=== PATIENT | female | born 1935 ===

== ENCOUNTER 2021-02-11 18:30 | Inpatient (IN) | payer MEDICARE ==
[~2021-02-11] VITALS: Ht 160 cm; Wt 57.3 kg
[2021-02-11 19:01] LABS: HEMATOCRIT 38.4 % (37.0-47.0); HEMOGLOBIN 12.8 g/dl (12.5-16.0); MEAN CELL VOLUME 95 fl (80.0-100.0); MEAN CORPUSCULAR HEMOGLOBIN 32 pg (27.0-31.0); MEAN CORPUSCULAR HGB CONC 33 g/dl (33.0-37.0); PLATELET COUNT 264 K/mm3 (130-400); RED BLOOD COUNT 4.06 M/mm3 (4.10-5.30); REDCELL DISTRIBUTION WIDTH-CV 14.5 % (11.5-14.5)
[2021-02-11 19:09] LABS: INR 1.1 (0.8-3.0); PROTHROMBIN TIME 12.5 SECONDS (9.7-12.8)
[2021-02-11 19:11] LABS: PARTIAL THROMBOPLASTIN TIME 28.1 SECONDS (26.0-37.0)
[2021-02-11 19:21] LABS: LYMPHOCYTE 15 % (20.0-51.0); NEUTROPHILS 78 % (42.0-75.2)
[2021-02-11 19:24] LABS: PLATELET ESTIMATE NORMAL (NORMAL)
[2021-02-11 19:25] LABS: HYPOCHROMIA 1+
[2021-02-11 19:29] LABS: ALBUMIN 3.5 gm/dL (3.4-4.8); BILIRUBIN,TOTAL 0.8 mg/dL (0.2-1.2); CALCIUM 10.3 mg/dL (8.4-10.2); CREATININE, serum 1.04 mg/dL (0.57-1.11); POTASSIUM 4.1 mmol/L (3.5-4.5); TOTAL PROTEIN 7.7 gm/dL (6.2-8.1)
[2021-02-11 19:35] LABS: TROPONIN-I 0.02 ng/mL (0.00-0.033)
[2021-02-11] MEDS ORDERED: TYLENOL 325MG325 MG PO ×2 (22:26→22:42)
[2021-02-11] MEDS ORDERED: NORVASC 10MG10 MG PO (22:27)
[2021-02-11] MEDS ORDERED: GENTLE LAXATIVE10 MG RC (22:28)
[2021-02-11] MEDS ORDERED: DEPAKOTE 125MG125 M1 PO (22:29)
[2021-02-11] MEDS ORDERED: ARICEPT 5MG PO (22:30)
[2021-02-11] MEDS ORDERED: LASIX 20MG TABL20 MG PO (22:32)
[2021-02-11] MEDS ORDERED: DRIZALMA SPRINK30 MG PO (22:32)
[2021-02-11] MEDS ORDERED: IMODIUM A-D2 MG PO (22:33)
[2021-02-11] MEDS ORDERED: MELADOX NATURAL3 MG PO (22:34)
[2021-02-11] MEDS ORDERED: NAMENDA5 MG PO (22:34)
[2021-02-11] MEDS ORDERED: GOOD NEIGH1200 MG/15 PO (22:35)
[2021-02-11] MEDS ORDERED: MIRTAZAPINE7.5 MG PO (22:36)
[2021-02-11] MEDS ORDERED: MULTI-VITAMIN W1 TA1 PO (22:37)
[2021-02-11] MEDS ORDERED: ALMACONE 360 M360 ML PO (22:38)
[2021-02-11] MEDS ORDERED: PROBIOTIC BLEN1 EACH PO (22:40)
[2021-02-11] MEDS ORDERED: ALDACTONE 25MG25 M1 PO (22:41)
[2021-02-11] MEDS ORDERED: ALTACE 5MG5 MG PO (22:41)
[2021-02-11 23:26] VITALS: BP 156/62; PULSE 85; TEMP 98.2
[2021-02-12] MEDS ORDERED: TYLENOL SU650 MG/SUP RC (00:20)
[2021-02-12 03:42] VITALS: BP 136/61; PULSE 82; TEMP 99.8
--- NOTE | 2021-02-12 06:00 | NUR ---
HepXa around 0330 was greater than 1. Put on hold, and rechecked at 0530. Awaiting results at this time. Patient complained of pain to chest. Call placed to [facility], and received order for PRN Morphine. Given per orders. Patient's oxygen needs have decreaesd to 5 L/min via oxymask. Voices no further questions, needs, or concerns at this time. Resting in bed with call light within reach.
[2021-02-12 06:06] LABS: BASO % 0.3 % (0.0-2.0); EOS % 0.1 % (0-4.0); GRAN # 7.8 (1.4-6.5); HEMOGLOBIN 11.6 g/dl (12.5-16.0); LYMPH # 1.5 (1.2-3.4); MEAN CELL VOLUME 97 fl (80.0-100.0); MEAN CORPUSCULAR HEMOGLOBIN 31 pg (27.0-31.0); MEAN CORPUSCULAR HGB CONC 33 g/dl (33.0-37.0); MEAN PLATELET VOLUME 11.8 fl (7.4-10.4); MONO # 1.3 (0.1-0.6); MONO % 12.2 % (1.7-9.3); PLATELET COUNT 226 K/mm3 (130-400); RED BLOOD COUNT 3.69 M/mm3 (4.10-5.30); REDCELL DISTRIBUTION WIDTH-CV 14.6 % (11.5-14.5)
[2021-02-12 06:11] LABS: HEMATOCRIT 35.6 % (37.0-47.0)
[2021-02-12 06:37] LABS: CALCIUM 9.8 mg/dL (8.4-10.2); CREATININE, serum 0.92 mg/dL (0.57-1.11); POTASSIUM 3.9 mmol/L (3.5-4.5)
--- NOTE | 2021-02-12 06:39 | NUR ---
HepXa results back. Restarted heparin drip at 950 ml/hr per protocol.
[2021-02-12 08:15] VITALS: BP 136/58; PULSE 75; TEMP 98.8
--- NOTE | 2021-02-12 09:30 | NUR ---
Patient alert and oriented, answers questions appropriately. See assessment. Lungs decreased in bases, clear in upper lobes. No cough noted. Respers even and unlabored. Oxygen via oxymask at 5l. No c/o SOA. No other c/o at this time.
--- NOTE | 2021-02-12 09:57 | NUR ---
The patient has dementia. SEAMUS contacted the patient's son, Saqib (ph#[phone]), to discuss discharge plan. Saqib lives in [place]. The patient resides at [facility], [facility]. The patient's PCP is Dr. Horacio Bazzi. Saqib reports that the patient does have a DPOA-HC and that he is the patient's DPOA-HC. Saqib reports that the plan is for the patient to return back to [facility] upon discharge. SEAMUS contacted pebbles Stuart plus chemical unit operator at [facility]. Sade gave SEAMUS the RN leader phone number for the [facility]: ph#[phone], fx#[phone]. SEAMUS attempted to contact ISRRAEL Galvan at the [facility]. SEAMUS left her a voicemail and requested a copy of the patient's DPOA-HC. SEAMUS faxed her updates. *Discharge plan: [facility], [facility]*
--- NOTE | 2021-02-12 10:23 | NUR ---
Mandy, an RN at [facility], returned SEAMUS's phone call. Mandy states that the patient utilizes a walker there. SEAMUS inquired about the DPOA-HC. Mandy reports that they will fax it the surgical unit. Mandy states that we will need to contact Ladonna at [facility] to coordinate a transport time when the patient is ready to discharge.
--- NOTE | 2021-02-12 10:39 | NUR ---
SW received the patient's DPOA-HC, via fax. SW placed the copy in the patient's chart. The patient's DPOA-HC designates Saqib Lara.
[2021-02-12 11:20] VITALS: BP 140/52; PULSE 77; TEMP 98.6
--- NOTE | 2021-02-12 14:56 | NUR ---
Initial visit; Patient thanked Floorworker Lasting for looking in on her and offering prayer and God's blessings.
[2021-02-12 16:00] VITALS: BP 106/90; PULSE 72; TEMP 98.4
[2021-02-12 19:45] VITALS: BP 113/90; PULSE 50; TEMP 97.8
--- NOTE | 2021-02-12 21:34 | NUR ---
Patient confused: disoriented to time, place, and situation. At beginning of shift, very irritable, and yelling. Called son for patient, which helped. Redirected to time and place, but seems to upset patient when trying to reorient. Denies pain and discomfort. On oxygen at 5 l/min via NC. LS CTA in upper lobes, diminished in lower. Continues on PO Eliquis, as well as ABXs per orders. Voices no questions, needs, or concerns at this time. Resting in bed with call light within reach. High fall risk precautions in place. Took medications crushed in pudding.
[2021-02-12 23:19] VITALS: BP 127/45; PULSE 81; TEMP 98
[2021-02-13 03:32] VITALS: BP 113/42; PULSE 69; TEMP 98.4
--- NOTE | 2021-02-13 05:11 | NUR ---
Patient has been resting in bed with call light within reach. Has denied having pain and discomfort. Intermittent confusion continues. IV fluids continue. High fall risk precautions remain in place.
[2021-02-13 07:33] VITALS: BP 112/58; PULSE 79; TEMP 97.8
--- NOTE | 2021-02-13 11:48 | NUR ---
The hospitalist notified SEAMUS that the patient may be able to discharge tomorrow, 02/13. SEAMUS notified Delmi at [facility]. SEAMUS to fax updates to [facility]. SEAMUS contacted and updated the patient's son, Saqib. Saqib is in agreement to the plan.
[2021-02-13 12:28] VITALS: BP 115/48; PULSE 78; TEMP 98
--- NOTE | 2021-02-13 12:31 | NUR ---
Patient alert, confused. Answers most questions correctly, although delayed responses. Heart tones strong and even, pulses palpable. No c/o at this time.
--- NOTE | 2021-02-13 15:03 | NUR ---
Ladonna, at [facility], reports that their clinical team reviewed the updates and they would like the patient to go to [facility] for a skilled stay, due to her change in clinical status and oxygen needs. SW contacted and updated the patient's son, Saqib. Saqib is agreeable with the patient going to [facility] for a skilled stay. *Discharge plan: [facility]*
[2021-02-13 16:15] VITALS: BP 114/54; PULSE 67; TEMP 98.7
[2021-02-13 18:47] VITALS: BP 135/39; PULSE 74; TEMP 97.9
[2021-02-13 23:21] VITALS: BP 115/50; PULSE 66; TEMP 98.2
--- NOTE | 2021-02-14 03:17 | NUR ---
YELLING IS HEARD FROM PT'S ROOM. PT IS IN BED ET STATES THAT SHE NEEDS TO GO TO THE BATHROOM. PT IS ASSISTED WITH ONE ASSIST, WALKER, ET GAIT BELT TO [facility] THEN BACK TO BED. PT VOIDS ET IS INCONTINENT OF URINE. PT IS CONFUSED, ORIENTED ONLY TO PERSON. ATTEMPTS MADE TO RE-ORIENT PT BUT SHE CANNOT COMPREHEND. OXYGEN IS ON @ 3L VIA NC. PT DENIES PAIN OR OTHER NEEDS. BED ALARM ON, CALL LIGHT WITHIN REACH.
[2021-02-14 04:00] VITALS: BP 134/48; PULSE 81; TEMP 98.4
--- NOTE | 2021-02-14 04:59 | NUR ---
UNABLE TO WEAN PT OFF OF OXYEGEN @ THIS TIME. OXYGEN SATS REMAIN @ 87-88% ON RA WHEN PT REMOVES NASAL CANNULA. OXYGEN SATS ARE 91-96% ON 3L VIA NC. EXPLAINED TO PT THAT OXYEGN SHOULD REMAIN IN PLACE. PT IS AGREEABLE BUT OFTEN FORGETS ET TAKES IT OFF.
--- NOTE | 2021-02-14 08:06 | NUR ---
Pt awake in room, pleasant demeanor, pt sometimes confused to situation but easy to reorient. Pt has no concerns at this time. Call light within reach. Pt stated she will call son to bring glasses, this nurse checked pt belongings and did not find glasses. IV site within normal limits. Pt eating breakfast at this time.
[2021-02-14 08:13] VITALS: BP 145/83; PULSE 93; TEMP 98
[2021-02-14] MEDS ORDERED: ELIQUIS 5MG PO (09:44)
[2021-02-14] MEDS ORDERED: IPRATROPIUM BROM3 M1 IH (09:45)
[2021-02-14] MEDS ORDERED: OMNICEF 121500 MG/60 PO (09:47)
--- NOTE | 2021-02-14 11:46 | NUR ---
The patient is to discharge today, 02/14, to [facility] for a skilled stay. Transportation was scheduled at 1300, via [facility]. SEAMUS informed the patient's RN and the son, Saqib, of the time. They were both in agreement to the time. SEAMUS also read the IM form outloud to Saqib. Saqib verbalized understanding and gave SW approval to sign the form on his behalf. Saqib asked for a copy of the IM form to be emailed to him. SEAMUS emailed the IM form to Saqib. No additional needs at this time.
[2021-02-14 12:25] VITALS: BP 155/56; PULSE 79; TEMP 97.8
--- NOTE | 2021-02-14 13:20 | NUR ---
Patient transfering to [facility]. INT to Left forarm discontinued by RN student. Patient denies needs at this time. Patient out by wheelchair with staff.
== END 2021-02-14 13:05 | DRG 175 ==
LOC: COL.ER 18:30 → SURG 21:09
PROVIDERS: Emergency Medicine; Student in an Organized Health Care Education/Training Program; ADMIT Internal Medicine
DX: I26.99 Other pulmonary embolism without acute cor pulmonale (principal); J18.9 Pneumonia, unspecified organism; J96.01 Acute respiratory failure with hypoxia; F03.90 Unspecified dementia, unspecified severity, without behavioral disturbance, psychotic disturbance, mood disturbance, and anxiety; F32.9 Major depressive disorder, single episode, unspecified; F41.9 Anxiety disorder, unspecified; G47.00 Insomnia, unspecified; R13.10 Dysphagia, unspecified; R07.89 Other chest pain; Z66 Do not resuscitate; Z20.822 Contact with and (suspected) exposure to COVID-19; Z79.82 Long term (current) use of aspirin
CPT/HCPCS: 99223-AI; 99232-AI; 99233-AI; 99239; J0456; J0696; J1644; J2270; J3010; J7030; J7050; Q9967

== ENCOUNTER → 2023-12-22 | Outpatient (CLI) | payer MEDICARE ==
[~2023-12-22] MED LIST: ALDACTONE 25MG25 M1 PO; ALMACONE 360 M360 ML PO; ALTACE 5MG5 MG PO; ARICEPT 5MG PO; DEPAKOTE 125MG125 M1 PO; DRIZALMA SPRINK30 MG PO; ELIQUIS 5MG PO; GENTLE LAXATIVE10 MG RC; GOOD NEIGH1200 MG/15 PO; IMODIUM A-D2 MG PO; IPRATROPIUM BROM3 M1 IH; LASIX 20MG TABL20 MG PO; MELADOX NATURAL3 MG PO; MIRTAZAPINE7.5 MG PO; MULTI-VITAMIN W1 TA1 PO; NAMENDA5 MG PO; NORVASC 10MG10 MG PO; OMNICEF 121500 MG/60 PO; PROBIOTIC BLEN1 EACH PO; TYLENOL 325MG325 MG PO; TYLENOL SU650 MG/SUP RC
[2023-12-22 15:12] LABS: BASO # 0.1 K/mm3 (0.0-0.2); BASO % 0.5 % (0.0-2.0); EOS # 0.1 K/mm3 (0.0-0.7); EOS % 1.4 % (0.0-4.0); GRAN % 65.6 % (42.2-75.2); HEMOGLOBIN 13.8 g/dl (12.5-16.0); LYMPH # 2.2 K/mm3 (1.2-3.4); LYMPH % 23.9 % (20.0-51.0); MEAN CELL VOLUME 100 fl (80.0-100.0); MEAN CORPUSCULAR HEMOGLOBIN 32 pg (27-31); MEAN CORPUSCULAR HGB CONC 32 g/dl (33.0-37.0); MEAN PLATELET VOLUME 12.9 fl (7.4-10.4); MONO # 0.8 K/mm3 (0.1-0.6); MONO % 8.5 % (1.7-9.3); PLATELET COUNT 284 K/mm3 (130-400); RED BLOOD COUNT 4.29 M/mm3 (4.10-5.30); REDCELL DISTRIBUTION WIDTH-CV 14.7 % (11.5-14.5)
[2023-12-22 15:27] LABS: ALBUMIN 3.4 g/dL (3.4-4.8); BILIRUBIN,TOTAL 0.3 mg/dL (0.2-1.2); CALCIUM 10.9 mg/dL (8.4-10.2); CREATININE, serum 1.3 mg/dL (0.57-1.11); POTASSIUM 4.5 mEq/L (3.5-4.5); TOTAL PROTEIN 7.4 g/dl (6.2-8.1)
[2023-12-22 15:47] LABS: THYROID STIMULATING HORMONE 1.528 uIU/mL (0.350-4.940)
== END ==
LOC: ZCOL.LAB 14:52
PROVIDERS: Internal Medicine
DX: E78.00 Pure hypercholesterolemia, unspecified (principal); I11.0 Hypertensive heart disease with heart failure; I50.32 Chronic diastolic (congestive) heart failure; E11.59 Type 2 diabetes mellitus with other circulatory complications